=== PATIENT | male | born 1945 | race Caucasian/White ===

== ENCOUNTER 2025-04-19 11:19 | Outpatient (CLI) | payer OTHER, SELFPAY ==
--- NOTE | ~2025-04-19 | PE_ITS ---
EXAMINATION: PET_PETPSMAST_PT DATE: 04/19/2025 14:50 INDICATION: Prostate cancer TECHNIQUE: 4.611 mCi of Illucix Ga-68([id number]) was administered i.v. Low dose computed tomography (CT) images were acquired from the base of the brain to the base of the brain to the proximal thighs for attenuation correction and anatomic localization. Positron emission tomography (PET) images were acquired in the same distribution beginning 78 minutes after injection. Images including fused PET/CT images were reconstructed in axial, coronal, and sagittal planes. Automated exposure control technique was employed. The dose-length product was 1328.72mGy-cm. COMPARISON: None FINDINGS: Head/neck: Typical pattern of symmetric physiologic increased activity in the lacrimal, parotid and submandibular glands as well as along the mucosa of the nasal and oral cavities, pharynx and hypopharynx. No pathologically enlarged cervical lymphadenopathy or suspicious foci of increased uptake in the visualized head or neck. Chest: Moderate respiratory motion and dependent atelectasis in both lungs. No suspicious pulmonary nodules, pneumonia or pleural effusion. Mild cardiomegaly. Atherosclerotic coronary artery calcific lesions and aortic valve calcification. No pericardial effusion. Thoracic aorta is normal in caliber. No pathologically enlarged or PSMA avid thoracic lymphadenopathy. Abdomen/pelvis/proximal thighs: Physiologic renal accumulation and excretion of activity in the kidneys, bladder and along portions of ureters. There are photopenic defects associated with bilateral low-attenuation renal cysts the larger on the right measuring 4.3 cm. There are 2 regions of increased activity in the posterior prostate, the more intense on the left with maximal SUV of 41.8 and the less intense on the right with maximal SUV of 15.9 which are consistent with primary prostate cancer. Normal degree and slightly heterogenous pattern of increased uptake throughout the liver and spleen without radiologic correlate or dominant PSMA avid lesion. Subtle photopenic defect associated with a 2.6 cm hypodense cyst in the left h epatic lobe. The gallbladder, pancreas and bilateral adrenal glands are normal. Moderate uptake scattered throughout the bowels with typical duodenal and proximal jejunal predominance and without radiologic correlate, also likely physiologic. No other abnormal foci of increased uptake or pathologically enlarged lymphadenopathy in the abdomen, pelvis or proximal thighs. Musculoskeletal: Severe cervical and lumbar spondylosis and moderate thoracic spondylosis. 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 No suspicious lytic, blastic or abnormally PSMA avid bone lesions. IMPRESSION: 1. Increased uptake in the posterior aspect of the left and right sides of the prostate consistent with primary prostate cancer. No evident metastatic disease. Reviewed, dictated and finalized at location A. [employer] IMPRESSION: 1. Increased uptake in the posterior aspect of the left and right sides of the prostate consistent with primary prostate cancer. No evident metastatic disease .
== END 2025-04-19 11:20 | disposition home or self-care (01) ==
PROVIDERS: PCP Family Medicine Sports Medicine; Visit Provider Urology
DX: C61 Malignant neoplasm of prostate (principal)
CPT/HCPCS: 78815; A9596